=== PATIENT | female | born 1970 | race Hispanic/Latino ===

== ENCOUNTER 2017-05-25 09:53 | Inpatient (IN) | payer OTHER ==
[2017-05-25] MEDS ORDERED: Vancomycin 1gm in NS 250ml 1 GM/250 ML BAG IVPB STA (10:23)
[2017-05-25] MEDS ORDERED: Morphine 4 mg/ml ISec IVP STA (10:41)
--- NOTE | 2017-05-25 10:42 | ED PDOC ---
Arrival/HPI - General Historian: Patient - History of Present Illness Time/Duration: Other (2 days) Symptom Course: Worsening Quality: Aching, Throbbing Severity Level: 10 <Shaila Schilling - Last Filed: 05/25/17 13:55> <BetsylindaSunny - Last Filed: 05/28/17 07:57> - General Chief Complaint: Finger,Hand,&Wrist Time Seen by Provider: 05/25/17 10:10 - History of Present Illness Narrative History of Present Illness (Text): 05/25/17 10:38 47-year-old female presents today with a right second finger pain and swelling and decreased flexion since yesterday. Patient states on evening she had her nails done. She states she had a gel filling of the nail. Patient states she woke up the next morning with swelling to the finger and slight pain. Patient states she woke up today with severe swelling and pain. Patient rates the pain as a 10 out of 10. She states she is unable to flex the finger. Patient states she has pain with extension of the finger. She is complaining of intermittent paresthesias. Patient states she recently completed 3 different antibiotics for ear infection. Patient denies fevers or chills. No chest pain or shortness of breath. She denies any recent trauma or injury. Patient states she went back to the nail salon today and had the gel removed from the fingernail. No other complaints (Shaila Schilling) Past Medical History - Provider Review Nursing Documentation Reviewed: Yes - Travel History Have you recently traveled outside [place] w/in the past 3 mons?: No - Infectious Disease Hx of Infectious Diseases: None - Tetanus Immunization Tetanus Immunization: Unknown - Cardiac Hx Hypertension: No (not since gastric sleeve 3 yrs ago) - Pulmonary Hx Asthma: Yes - Neurological Hx Neurological Disorder: No - HEENT Hx HEENT Disorder: Yes (eyeglasses) Other/Comment: STREP THROAT - Renal Hx Renal Disorder: No - Endocrine/Metabolic Hx Endocrine Disorders: No - Hematological/Oncological Other/Comment: slim barre sx age 26 - Integumentary Hx Dermatological Disorder: No - Musculoskeletal/Rheumatological Hx Falls: No - Gastrointestinal Other/Comment: gastric sleeve 3 yrs ago lost 240 lbs on purpose - Genitourinary/Gynecological Other/Comment: HYSTERECTOMY, polycystic ovary syndrome, no cysts since hyst - Psychiatric Hx Depression: No Hx Emotional Abuse: No Hx Physical Abuse: No Hx Substance Use: No - Surgical History Hx Appendectomy: Yes Hx Cardiac Catheterization: Yes (DIAGNOSTIC) Hx Hysterectomy: Yes Other/Comment: gastric sleeve c section - Anesthesia Hx Anesthesia: Yes Hx Anesthesia Reactions: No Hx Malignant Hyperthermia: No - Suicidal Assessment Feels Threatened In Home Enviroment: No <Shaila Schilling - Last Filed: 05/25/17 13:55> Family/Social History - Physician Review Nursing Documentation Reviewed: Yes Family/Social History: Unknown Family HX Smoking Status: Never Smoked Hx Alcohol Use: Yes (socially in the past) Hx Substance Use: No Hx Substance Use Treatment: No <Shaila Schilling - Last Filed: 05/25/17 13:55> Allergies/Home Meds <Shaila Schilling - Last Filed: 05/25/17 13:55> <Sunny Benitez - Last Filed: 05/28/17 07:57> Allergies/Adverse Reactions: Allergies cefaclor [From Ceclor] Allergy (Verified 05/25/17 13:55) RASH ciprofloxacin [From Cipro] Allergy (Verified 05/25/17 13:55) RASH ciprofloxacin HCl [From Cipro] Allergy (Verified 05/25/17 13:55) RASH Iodine and Iodide Containing Produc Adverse Reaction (Verified 05/25/17 13:55) RASH Home Medications: Home Meds Medication Instructions Recorded Confirmed Biotin [Theodore Biotin] 10,000 mcg PO DAILY 05/25/17 05/25/17 Calcium Carbonate [Calcium] 500 mg PO DAILY 05/25/17 05/25/17 Celecoxib [Celebrex] 50 mg PO DAILY 05/25/17 05/25/17 Cyanocobalamin (Vitamin B-12) 1,000 mcg PO DAILY 05/25/17 05/25/17 [Vitamin B-12] Review of Systems - Review of Systems Constitutional: absent: Fatigue, Fevers Respiratory: absent: SOB, Cough Cardiovascular: absent: Chest Pain, Palpitations Gastrointestinal: absent: Abdominal Pain, Nausea, Vomiting Musculoskeletal: Arthralgias Skin: Cellulitis Neurological: absent: Headache, Dizziness <Shaila Schilling - Last Filed: 05/25/17 13:55> Physical Exam Vital Signs Reviewed: Yes Temperature: Afebrile Blood Pressure: Normal Pulse: Regular Respiratory Rate: Normal Appearance: Positive for: Well-Appearing, Non-Toxic, Comfortable Pain Distress: None Mental Status: Positive for: Alert and Oriented X 3 - Systems Exam Head: Present: Atraumatic Mouth: Present: Moist Mucous Membranes Neck: Present: Normal Range of Motion Respiratory/Chest: Present: Clear to Auscultation Cardiovascular: Present: Regular Rate and Rhythm Upper Extremity: Present: NORMAL PULSES, Tenderness (right 2nd finger; finger is held in slight flexion, unable to flex finger, + edema throughout. + erythema throughout the finger. + tenderness along the volar aspect of the finger. sensation intact. cap refill <2. limited extension of finger. cap refill <2. ), Swelling, Erythema, Neurovascularly Intact, Capillary Refill < 2s. No: Normal ROM, Deformity Neurological: Present: GCS=15 Skin: Present: Warm, Dry Psychiatric: Present: Alert, Oriented x 3 <Shaila Schilling - Last Filed: 05/25/17 13:55> Medical Decision Making <Shaila Schilling - Last Filed: 05/25/17 13:55> <Sunny Benitez - Last Filed: 05/28/17 07:57> ED Course and Treatment: 05/25/17 10:44 47yr old female with right 2nd finger pain/swelling/limited rom. concern for flexor tenosynovitis. cbc: wbc; 10.8 cmp: wnl blood cultures pending esr: crp: xray right 2nd finger: IMPRESSION: There is a small 2 x 4 mm density in the soft tissues ventral to the 2nd PIP joint. This could represent a foreign body. Clinical correlation is suggested. discussed xray findings with patient and family; again denies trauma or injury or possibility of FB. Vancomycin started IV. 05/25/17 11:[address] Dilip Elizondo; he will see patient tomorrow in hospital; Advised vancomycin IV. Pt of dr. partida to be admitted to hospitalist service; case discussed with dr. Nassar; accepts admission to med/surg pt seen and evaluated by dr. benitez. impression; flexor tenosynovitis, FB finger admit to med/surg. with Hand consult dr. Elizondo. ([place],Shaila T) - Lab Interpretations Microbiology Results: Microbiology Results 05/25/17 10:35 Blood Blood Culture - Preliminary NO GROWTH AFTER 48 HOURS Lab Results: 05/25/17 10:35 05/25/17 10:35 Lab Results 05/25/17 10:35: Blood Type A POSITIVE, Antibody Screen Negative, BBK History Checked No verified bt 05/25/17 10:35: C-React Prot High Sens > 15.00 H 05/25/17 10:35: PT 10.4, INR 0.96, APTT 34.5 H 05/25/17 10:35: WBC 10.8 D, RBC 4.83, Hgb 13.5, Hct 40.2, MCV 83.2, MCH 28.0, MCHC 33.6, RDW 13.0, Plt Count 294, MPV 10.0, Gran % 67.6, Lymph % (Auto) 24.0, Carver % (Auto) 6.2 H, Eos % (Auto) 1.7, Baso % (Auto) 0.5, Gran # 7.27 H, Lymph # 2.6, Carver # 0.7 H, Eos # 0.2, Baso # 0.05, ESR 48 H 05/25/17 10:35: Sodium 140, Potassium 4.3, Chloride 103, Carbon Dioxide 27, Anion Gap 14, BUN 18, Creatinine 0.6, Est GFR ( Amer) > 60, Est GFR (Non- Af Amer) > 60, Random Glucose 98, Calcium 9.6, Total Bilirubin 0.8, AST 25, ALT 29, Alkaline Phosphatase 90, Total Protein 8.4 H, Albumin 4.2, Globulin 4.2, Albumin/Globulin Ratio 1.0 L - RAD Interpretation Radiology Orders: 05/25/17 10:10 HAND RIGHT 2ND DIGIT (FINGER) [RAD] Stat - Medication Orders Current Medication Orders: Discontinued Medications Acetaminophen (Tylenol 325mg Tab) 650 mg PO Q6H PRN PRN Reason: Pain, Mild (1-3) Last Admin: 05/27/17 01:35 Dose: 650 mg Re-Assess: [facility] Pain/Vitals Document 05/27/17 02:35 LG (Rec: 05/27/17 05:06 [id number]) Pain Reassessment Is This A Pain ReAssessment? Yes Sleep Is patient sleeping during reassessment? Yes Calcium Carbonate (Oscal) 500 mg PO DAILY [facility] Last Admin: 05/27/17 09:16 Dose: 500 mg Cyanocobalamin (Vitamin B12 1000 Mcg Tab) 1,000 mcg PO DAILY [facility] Last Admin: 05/27/17 09:16 Dose: 1,000 mcg Fluconazole (Diflucan) 150 mg PO ONCE ONE PRN Reason: Protocol Stop: 05/26/17 14:28 Last Admin: 05/26/17 14:49 Dose: 150 mg Guaifenesin (Robitussin) 100 mg PO Q4H PRN PRN Reason: Cough Home Med (Home Med) 1 unit PO DAILY [facility] Last Admin: 05/27/17 09:16 Dose: Vancomycin HCl (Vancomycin 1gm) 1 gm in 250 mls @ 167 mls/hr IVPB STAT STA PRN Reason: Protocol Stop: 05/25/17 11:52 Last Admin: 05/25/17 11:15 Dose: 167 mls/hr Vancomycin HCl (Vancomycin 1gm) 1 gm in 250 mls @ 167 mls/hr IVPB DAILY G[facility]Y PRN Reason: Protocol Vancomycin HCl (Vancomycin 1gm) 1 gm in 250 mls @ 167 mls/hr IVPB Q12 GABY PRN Reason: Protocol Last Admin: 05/27/17 09:15 Dose: 167 mls/hr Morphine Sulfate (Morphine) 4 mg IVP STAT STA Stop: 05/25/17 10:42 Last Admin: 05/25/17 11:08 Dose: 4 mg Morphine Sulfate (Morphine) 2 mg IVP Q4H PRN PRN Reason: Pain, moderate (4-7) Last Admin: 05/26/17 00:07 Dose: 2 mg Multivitamins (Thera Tab) 1 tab PO DAILY [facility] Last Admin: 05/27/17 09:16 Dose: 1 tab Ondansetron HCl (Zofran Inj) 4 mg IVP Q4H PRN PRN Reason: Nausea/Vomiting Pantoprazole Sodium (Protonix Inj) 40 mg IVP DAILY [facility] Last Admin: 05/27/17 09:16 Dose: 40 mg Pneumococcal Polyvalent Vaccine (Pneumovax 23 Vaccine) 0.5 ml IM .ONCE ONE Stop: 05/25/17 15:30 Sodium Chloride ([place] Nasal [place]) 1 ml NS PRN PRN PRN Reason: Nasal congestion Last Admin: 05/26/17 10:06 Dose: 1 ml - PA / [facility] HAND / Resident Statement MD/DO has examined the patient and agrees with the treatment plan. <Sunny Benitez - Last Filed: 05/28/17 07:57> Disposition/Present on Arrival - Present on Arrival Any Indicators Present on Arrival: No History of DVT/PE: No History of Uncontrolled Diabetes: No Urinary Catheter: No History of Decub. Ulcer: No History Surgical Site Infection Following: None - Disposition Have Diagnosis and Disposition been Completed?: Yes Disposition Time: 10:45 Patient Plan: Admission <Shaila Schilling - Last Filed: 05/25/17 13:55> <Sunny Benitez - Last Filed: 05/28/17 07:57> - Disposition Diagnosis: Flexor tenosynovitis of finger, Foreign body finger Disposition: HOSPITALIZED Condition: FAIR
[2017-05-25 10:56] LABS: BASO # 0.05 K/mm3 (0.0-2.0); BASO % 0.5 % (0.0-3.0); EOS # 0.2 (0.0-0.7); EOS % 1.7 % (1.5-5.0); GRAN # 7.27 (1.4-6.5); GRAN % 67.6 % (50.0-68.0); HEMOGLOBIN 13.5 gm/dL (12.0-16.0); LYMPH # 2.6 (1.2-3.4); MEAN CELL VOLUME 83.2 fL (80.0-105.0); MEAN CORPUSCULAR HGB CONC 33.6 g/dl (31.0-37.0); MONO # 0.7 (0.1-0.6); MONO % 6.2 % (1.0-6.0); PLATELET COUNT 294 10^3/uL (120.0-450.0); RBC 4.83 10^6/uL (3.5-6.1); WHITE BLOOD COUNT 10.8 10^3/ul (4.5-11.0)
[2017-05-25 11:31] LABS: INR 0.96 (0.93-1.08); PARTIAL THROMBOPLASTIN TIME 34.5 Seconds (23.7-30.8); PROTHROMBIN TIME 10.4 Seconds (9.9-11.8)
--- NOTE | 2017-05-25 11:56 | RAD ---
PROCEDURE: Right Hand Radiographs. HISTORY: swollen finger/erythema COMPARISON: None. FINDINGS: BONES: Normal. No fracture. JOINTS: Normal. No osteoarthritic changes. SOFT TISSUES: There is a small 2 x 4 mm density in the soft tissues ventral to the 2nd PIP joint. This could represent a foreign body. Clinical correlation is suggested. OTHER FINDINGS: None. IMPRESSION: There is a small 2 x 4 mm density in the soft tissues ventral to the 2nd PIP joint. This could represent a foreign body. Clinical correlation is suggested.
[2017-05-25 12:04] LABS: ALBUMIN 4.2 g/dL (3.0-4.8); ALT/SGPT 29 U/L (7-56); AST/SGOT 25 U/L (15-39); BLOOD UREA NITROGEN 18 mg/dL (7-21); CALCIUM 9.6 mg/dL (8.4-10.5); GFR AFRICAN-AMERICAN > 60; GFR NON-AFRICAN AMERICAN > 60
[2017-05-25] MEDS ORDERED: Morphine 2 mg/ml ISec IVP PRN (12:57)
--- NOTE | 2017-05-25 13:12 | CP.PCM.HP ---
<Eddie Sun - Last Filed: 05/25/17 13:07> History of Present Illness - History of Present Illness History of Present Illness: 47 y/o F with PMH of PCOS presents to the hospital with 2 day history of right index finger pain and reduced range of motion. Pt states that she got her nails done 3 days ago at her normal salon. The next morning, she noticed increased swelling and decreased ROM in the finger. At this time, she took some tylenol which helped relieve her pain. Today when she woke up, pt states her finger was more swollen and she was not able to bend it. Pt then went back to her nail salon to get her nail removed before coming to the hospital. Pt denies any trauma or recent cuts to the area. She does mention that her cuticles were cut by the salon and she has been going there for the past 3 years with no complaints. Denies CP, SOB, N/V/D, fevers, chills. PMH: PCOS Surgical Hx: Total abdominal hysterectomy, Appendectomy, Abdominal cyst removal FMH: Mother - Breast Cancer, Father - Hodgkin's Lymphoma Social Hx: Denies alcohol, tobacco, or illicit drug use Allergies: Cipro, IV contrast Medications: None Present on Admission - Present on Admission Any Indicators Present on Admission: No Review of Systems - Constitutional Constitutional: absent: Chills, Fatigue, Fever - EENT Eyes: absent: Blurred Vision, Change in Vision - Cardiovascular Cardiovascular: absent: Chest Pain, Irregular Heart Rhythm - Respiratory Respiratory: absent: Cough, Dyspnea - Gastrointestinal Gastrointestinal: absent: Diarrhea, Nausea, Vomiting - Genitourinary Genitourinary: absent: Dysuria, Pyuria - Musculoskeletal Musculoskeletal: Joint Swelling, Stiffness. absent: Atrophy - Integumentary Integumentary: absent: New Lesions, Rash - Neurological Neurological: absent: Numbness, Syncope - Hematologic/Lymphatic Hematologic: absent: Easy Bleeding, Easy Bruising Past Patient History - Infectious Disease Hx of Infectious Diseases: None - Tetanus Immunizations Tetanus Immunization: Unknown - Past Social History Smoking Status: Never Smoked - CARDIAC Hx Hypertension: No (not since gastric sleeve 3 yrs ago) - PULMONARY Hx Asthma: Yes - NEUROLOGICAL Hx Neurological Disorder: No - HEENT Hx HEENT Problems: Yes (eyeglasses) Other/Comment: STREP THROAT - RENAL Hx Chronic Kidney Disease: No - ENDOCRINE/METABOLIC Hx Endocrine Disorders: No - HEMATOLOGICAL/ONCOLOGICAL Other/Comment: slim mcginnisx age 26 - INTEGUMENTARY Hx Dermatological Problems: No - MUSCULOSKELETAL/RHEUMATOLOGICAL Hx Falls: No - GASTROINTESTINAL Other/Comment: gastric sleeve 3 yrs ago lost 240 lbs on purpose - GENITOURINARY/GYNECOLOGICAL Other/Comment: HYSTERECTOMY, polycystic ovary syndrome, no cysts since hyst - PSYCHIATRIC Hx Depression: No Hx Emotional Abuse: No Hx Physical Abuse: No Hx Substance Use: No - SURGICAL HISTORY Hx Appendectomy: Yes Hx Cardiac Catheterization: Yes (DIAGNOSTIC) Hx Hysterectomy: Yes Other/Comment: gastric sleeve c section - ANESTHESIA Hx Anesthesia: Yes Hx Anesthesia Reactions: No Hx Malignant Hyperthermia: No Meds Allergies/Adverse Reactions: Allergies Allergy/AdvReac Type Severity Reaction Status Date / Time cefaclor [From Ceclor] Allergy RASH Verified 05/25/17 13:55 ciprofloxacin [From Cipro] Allergy RASH Verified 05/25/17 13:55 ciprofloxacin HCl Allergy RASH Verified 05/25/17 13:55 [From Cipro] Iodine and Iodide Containing AdvReac RASH Verified 05/25/17 13:55 Produc Physical Exam - Constitutional Appears: Well, No Acute Distress - Head Exam Head Exam: ATRAUMATIC, NORMAL INSPECTION, NORMOCEPHALIC - Eye Exam Eye Exam: EOMI - ENT Exam ENT Exam: Mucous Membranes Moist - Neck Exam Neck exam: Positive for: Normal Inspection. Negative for: Lymphadenopathy - Respiratory Exam Respiratory Exam: Clear to Auscultation Bilateral, NORMAL BREATHING PATTERN. absent: Rales, Rhonchi - Cardiovascular Exam Cardiovascular Exam: RRR, +S1, +S2 - GI/Abdominal Exam GI & Abdominal Exam: Normal Bowel Sounds, Soft. absent: Tenderness - Extremities Exam Extremities exam: Positive for: normal inspection. Negative for: calf tenderness, pedal edema - Expanded Upper Extremities Exam Right Neuro motor exam: absent: finger 2-5 abduction intact (Right index finger decreased active and passive ROM. Tenderness to palpation) - Neurological Exam Neurological exam: Alert, CN II-XII Intact, Oriented x3 - Psychiatric Exam Psychiatric exam: Normal Affect, Normal Mood - Skin Skin Exam: Intact, Normal Color, Warm Results - Vital Signs Recent Vital Signs: Last Vital Signs Temp 98.5 F 05/25/17 09:56 Pulse 81 05/25/17 09:56 Resp 16 05/25/17 09:56 BP 136/76 05/25/17 09:56 Pulse Ox 96 05/25/17 09:56 - Labs Result Diagrams: 05/25/17 10:35 05/25/17 10:35 Assessment & Plan - Assessment and Plan (Free Text) Plan: 47 y/o F with PMH of PCOS with possible flexor tenosynovitis of the right index finger. X-ray demonstrated a 2 x 4 cm density in the soft tissues ventral to the 2nd PIP joint, that could possible represent a foreign body although the patient denies any trauma to the area. Will admit to med/surg for IV antibiotics. Pt will be seen by hand surgery tomorrow. 1. Flexor tenosynovitis - Vancomycin 1 gm daily - Morphine 2 q4h for pain control - Hand surgery consulted, Dr. Elizondo 2. Hx of PCOS - No medications at home - Will monitor glucose levels 3. PPX - Protonix - SCDs - Zofran Seen, reviewed, and discussed with attending ELIZABETH SunY-2 <Evert Nassar - Last Filed: 05/25/17 16:04> Results - Vital Signs Recent Vital Signs: Last Vital Signs Temp 98.5 F 05/25/17 15:05 Pulse 81 05/25/17 15:05 Resp 16 05/25/17 15:05 BP 136/76 05/25/17 15:05 Pulse Ox 96 05/25/17 09:56 - Labs Result Diagrams: 05/25/17 10:35 05/25/17 10:35 Labs: Laboratory Results - last 24 hr 05/25/17 14:00 Blood Type Confirm A POSITIVE Attending/Attestation - Attestation I have personally seen and examined this patient.: Yes I have fully participated in the care of the patient.: Yes I have reviewed all pertinent clinical information: Yes Notes (Text): 05/25/17 16:01 attending note; Patient seen and examined with resident in ER. Patient is a 47-year-old female with the PMH of PCOS, asthma, pneumonia presents to the hospital with 2 day history of right index finger pain and reduced range of motion. Pt states that she got her nails done 3 days ago at her normal salon. x-ray showed small density next to right proximal interphalangeal joint. We will review it hand surgeon. Continue IV vancomycin. morphine for pain control. GI prophylaxis Protonix. we will follow up with hand surgery closely. upon discharge the patient will follow-up with PMD . 05/25/17 16:03
[2017-05-25] MEDS ORDERED: Pneumococcal 23-Valent Vaccine IM ONE (15:29)
[2017-05-25 15:30] VITALS: BMI 51.5
[2017-05-25] MEDS: Vancomycin 1gm in NS 250ml 1 GM/250 ML BAG IVPB SCH (22:20)
[2017-05-26 06:44] LABS: HEMOGLOBIN 11.2 gm/dL (12.0-16.0); MEAN CELL VOLUME 84.8 fL (80.0-105.0); MEAN CORPUSCULAR HEMOGLOBIN 27.1 pg (25.0-35.0); MEAN CORPUSCULAR HGB CONC 31.9 g/dl (31.0-37.0); MEAN PLATELET VOLUME 9.9 fl (7.0-11.0); RBC 4.14 10^6/uL (3.5-6.1); RED CELL DISTRIBUTION WIDTH 13.2 % (11.5-14.5); WHITE BLOOD COUNT 8.1 10^3/ul (4.5-11.0)
[2017-05-26 06:52] LABS: ALBUMIN 3.6 g/dL (3.0-4.8); ALT/SGPT 27 U/L (7-56); AST/SGOT 25 U/L (15-39); BLOOD UREA NITROGEN 14 mg/dL (7-21); CALCIUM 8.7 mg/dL (8.4-10.5); GFR AFRICAN-AMERICAN > 60; GFR NON-AFRICAN AMERICAN > 60
[2017-05-26] MEDS ORDERED: guaiFENesin 100 mg/5 ml Syrup UD PO PRN (09:09)
[2017-05-26] MEDS: Vancomycin 1gm in NS 250ml 1 GM/250 ML BAG IVPB SCH ×2 (09:15→23:33)
--- NOTE | 2017-05-26 09:37 | CARD ---
APPROVED REPORT EKG Measurement Heart [id number] <Conclusion> Normal sinus rhythm Normal ECG
[2017-05-26] MEDS ORDERED: CYANOCOBALAMIN 1000 MCG PO SCH (10:00)
[2017-05-26] MEDS ORDERED: BIOTIN 10000 MCG PO SCH (10:00)
[2017-05-26] MEDS ORDERED: Vancomycin 1gm in NS 250ml 1 GM/250 ML BAG IVPB SCH (10:00)
[2017-05-26] MEDS ORDERED: Non Formulary Medication (Multivitamin [Multivitamins] 1 TAB) PO SCH (10:00)
[2017-05-26] MEDS: Multivitamin Therapeutic Tab PO SCH (10:04)
[2017-05-26] MEDS: Biotin [Mega Biotin] 10,000 MCG PO SCH (11:26)
[2017-05-27 07:55] LABS: BASO # 0.03 K/mm3 (0.0-2.0); BASO % 0.4 % (0.0-3.0); EOS # 0.2 (0.0-0.7); EOS % 3.2 % (1.5-5.0); GRAN # 5.29 (1.4-6.5); GRAN % 70.2 % (50.0-68.0); HEMOGLOBIN 11.3 gm/dL (12.0-16.0); LYMPH # 1.5 (1.2-3.4); LYMPH % 19.3 % (22.0-35.0); MEAN CELL VOLUME 84.8 fL (80.0-105.0); MEAN CORPUSCULAR HEMOGLOBIN 26.8 pg (25.0-35.0); MEAN CORPUSCULAR HGB CONC 31.7 g/dl (31.0-37.0); MEAN PLATELET VOLUME 9.9 fl (7.0-11.0); MONO # 0.5 (0.1-0.6); MONO % 6.9 % (1.0-6.0); PLATELET COUNT 252 10^3/uL (120.0-450.0); RBC 4.21 10^6/uL (3.5-6.1); RED CELL DISTRIBUTION WIDTH 13.4 % (11.5-14.5); WHITE BLOOD COUNT 7.5 10^3/ul (4.5-11.0)
[2017-05-27 08:06] LABS: ALB/GLOB RATIO 1.1 (1.1-1.8); ALBUMIN 3.6 g/dL (3.0-4.8); ALT/SGPT 18 U/L (7-56); AST/SGOT 23 U/L (15-39); BLOOD UREA NITROGEN 10 mg/dL (7-21); CALCIUM 8.9 mg/dL (8.4-10.5); GFR AFRICAN-AMERICAN > 60; GFR NON-AFRICAN AMERICAN > 60
[2017-05-27 08:59] VITALS: BP 144/83; PULSE 81; RESP 17; TEMP 98; O2SAT 100
[2017-05-27] MEDS: Vancomycin 1gm in NS 250ml 1 GM/250 ML BAG IVPB SCH (09:15)
[2017-05-27] MEDS: Multivitamin Therapeutic Tab PO SCH (09:16)
[2017-05-27] MEDS: Biotin [Mega Biotin] 10,000 MCG PO SCH (09:16)
--- NOTE | 2017-05-27 10:22 | PN ---
SUBJECTIVE: The patient is a 47-year-old white female admitted to the hospital after having a right index finger infection from a pedicure. The patient developed tenosynovitis of the right hand, wrist and right second finger. The patient was seen in consultation by the hand surgery and also by internal medicine. The patient was placed on IV antibiotics with good resolution decreased swelling, decreased erythema, and increased movement of the finger. The patient does not need surgery. The patient will be discharge home in good condition today on p.o. antibiotics. ALLERGIES: THE PATIENT IS ALLERGIC TO CIPRO AND CEPHALEXIN. She will be discharged home on doxycycline and she follows as an outpatient. Physical examination is unchanged. The finger is not movable. There is some light tenderness and some slight erythema of the dorsum of the right hand; however, there is no swelling and no warmth to the hand and there is no blistering or peeling at this point. IMPRESSION: Tenosynovitis with infected right index finger. Francesco Palafox MD
--- NOTE | 2017-05-27 20:16 | DS ---
The patient is a 47-year-old white female admitted to the hospital with tenosynovitis and infected right index finger. The patient was seen in consultation by Dr. Alfrde for hand surgery. The patient also had IV antibiotics and local wound care to the right finger. The patient resolved slowly over the next several days with decreased white count, decreased cellulitis, and decreased swelling and inflammation. The patient was able to move the finger was needed at this point. The patient will be discharged home in improved condition and will continue on p.o. antibiotic. Francesco Palafox MD
== END 2017-05-27 16:20 | disposition home or self-care (01) | DRG 558 ==
LOC: ED 09:53 → ERH 11:50 → 3RSO 13:03
PROVIDERS: ADMIT Internal Medicine; ATTEND Internal Medicine
DX: M65.9 Synovitis and tenosynovitis, unspecified (principal); E28.2 Polycystic ovarian syndrome; M79.5 Residual foreign body in soft tissue; H66.90 Otitis media, unspecified, unspecified ear; J45.909 Unspecified asthma, uncomplicated; Z80.3 Family history of malignant neoplasm of breast; Z80.7 Family history of other malignant neoplasms of lymphoid, hematopoietic and related tissues; Z90.49 Acquired absence of other specified parts of digestive tract; Z90.710 Acquired absence of both cervix and uterus; Z88.1 Allergy status to other antibiotic agents

== ENCOUNTER 2018-10-22 14:23 | Outpatient (CLI) | payer OTHER | END 2018-10-22 14:24 | disposition home or self-care (01) | LOC: RAD 14:24 ==

== ENCOUNTER 2019-01-09 16:29 | Observation (INO) | payer OTHER ==
[2019-01-09 17:21] LABS: BASO # 0.01 K/mm3 (0.0-2.0); BASO % 0.1 % (0.0-3.0); HEMOGLOBIN 12.7 g/dL (12.0-16.0); LYMPH # 0.9 (1.2-3.4); LYMPH % 7.6 % (22.0-35.0); MEAN CELL VOLUME 84.7 fl (80.0-105.0); MEAN CORPUSCULAR HEMOGLOBIN 26.7 pg (25.0-35.0); MEAN CORPUSCULAR HGB CONC 31.5 g/dl (31.0-37.0); MEAN PLATELET VOLUME 10.2 fl (7.0-11.0); MONO % 0.3 % (1.0-6.0); PLATELET COUNT 327 10^3/uL (120.0-450.0); RBC 4.76 10^6/uL (3.5-6.1); RED CELL DISTRIBUTION WIDTH 13.4 % (11.5-14.5); WHITE BLOOD COUNT 11.6 10^3/uL (4.5-11.0)
[2019-01-09 17:32] LABS: ALBUMIN 4.4 g/dL (3.0-4.8); AST/SGOT 29 U/L (14-36); BLOOD UREA NITROGEN 16 mg/dL (7-21); CALCIUM 9.8 mg/dL (8.4-10.5); GFR NON-AFRICAN AMERICAN > 60
[2019-01-09 17:39] LABS: BAND 2 % (0-2); LYMPHOCYTE 11 % (22.0-35.0); MONOCYTE 1 % (1.0-6.0); NEUTROPHIL 86 % (50.0-70.0)
[2019-01-09 17:40] LABS: PLATELET ESTIMATE NORMAL (NORMAL)
[2019-01-09 17:44] LABS: ALT/SGPT < 6 U/L (7-56)
[2019-01-09 17:47] LABS: TROPONIN I < 0.01 ng/mL
--- NOTE | 2019-01-09 18:09 | ED PDOC ---
Arrival/HPI - General Chief Complaint: Chest Pain Historian: Patient - History of Present Illness Narrative History of Present Illness (Text): 01/09/19 16:38 A 48 year old female, whose past medical history includes migraines, hyperlipidemia, PCOS, and gastric sleeve, presents to the emergency department complaining of chest pain since 1 hour prior to arrival. Patient reports she had a solumedrol shot this morning for migraine however her headache persisted. and patient states she developed left sided chest pain radiating to left should and left neck. Patient admits to shortness of breath secondary to pain and nausea. Patient describes pain as constant and sharp. Patient denies any diaphoresis, blurry vision, fever, chills, lower extremity edema, or any other complaints. No PMD Time/Duration: 1-3 hours Symptom Onset: Gradual Symptom Course: Unchanged Activities at Onset: Light Context: Home Past Medical History - Provider Review Nursing Documentation Reviewed: Yes - Infectious Disease Hx of Infectious Diseases: None - Tetanus Immunization Tetanus Immunization: Unknown - Cardiac Hx Cardiac Disorders: Yes Hx Hypertension: No (not since gastric sleeve 3 yrs ago) - Pulmonary Hx Respiratory Disorders: Yes Hx Asthma: Yes Hx Pneumonia: Yes - Neurological Hx Neurological Disorder: Yes (NEUROPATHY) - HEENT Hx HEENT Disorder: Yes (eyeglasses) Other/Comment: STREP THROAT - Renal Hx Renal Disorder: No - Endocrine/Metabolic Hx Endocrine Disorders: No - Hematological/Oncological Hx Blood Disorders: Yes Other/Comment: slim barre sx age 26 - Integumentary Hx Dermatological Disorder: Yes Other/Comment: 8--17 PAIN AND SWELLING TO R INDEX FINGER-FLEXOR TENSYNOVITIS - Musculoskeletal/Rheumatological Hx Falls: No - Gastrointestinal Hx Gastrointestinal Disorders: Yes Other/Comment: gastric sleeve 3 yrs ago lost 240 lbs on purpose - Genitourinary/Gynecological Hx Genitourinary Disorders: Yes (C SECTION X 1) Other/Comment: HYSTERECTOMY, polycystic ovary syndrome, no cysts since hyst - Psychiatric Hx Depression: No Hx Emotional Abuse: No Hx Physical Abuse: No Hx Substance Use: No - Surgical History Hx Appendectomy: Yes Hx Cardiac Catheterization: Yes (DIAGNOSTIC) Hx Hysterectomy: Yes Other/Comment: gastric sleeve c section - Anesthesia Hx Anesthesia: Yes Hx Anesthesia Reactions: No Hx Malignant Hyperthermia: No - Suicidal Assessment Feels Threatened In Home Enviroment: No Family/Social History - Physician Review Nursing Documentation Reviewed: Yes Family/Social History: No Known Family HX Smoking Status: Never Smoked Hx Alcohol Use: No Hx Substance Use: No Hx Substance Use Treatment: No Allergies/Home Meds Allergies/Adverse Reactions: Allergies cefaclor [From Ceclor] Allergy (Verified 05/25/17 13:55) RASH ciprofloxacin [From Cipro] Allergy (Verified 05/25/17 13:55) RASH ciprofloxacin HCl [From Cipro] Allergy (Verified 05/25/17 13:55) RASH Iodine and Iodide Containing Produc Adverse Reaction (Verified 05/25/17 13:55) RASH Home Medications: Home Meds Medication Instructions Recorded Confirmed Biotin [Theodore Biotin] 10,000 mcg PO DAILY 05/25/17 05/25/17 Calcium Carbonate [Calcium] 500 mg PO DAILY 05/25/17 05/25/17 Celecoxib [Celebrex] 50 mg PO DAILY 05/25/17 05/25/17 Cyanocobalamin (Vitamin B-12) 1,000 mcg PO DAILY 05/25/17 05/25/17 [Vitamin B-12] Review of Systems - Physician Review All systems were reviewed & negative as marked: Yes - Review of Systems Constitutional: absent: Fevers, Other (chills) Eyes: absent: Vision Changes (blurry vision) Respiratory: SOB Cardiovascular: Chest Pain Gastrointestinal: Nausea Skin: absent: Other (no lower extremity edema) Endocrine: Diaphoresis Physical Exam Vital Signs Reviewed: Yes Vital Signs Temp Pulse Resp BP Pulse Ox 01/09/19 16:35 97.8 F 91 H 18 160/81 H 95 Temperature: Afebrile Blood Pressure: Hypertensive Pulse: Tachycardic Respiratory Rate: Normal Mental Status: Positive for: Alert and Oriented X 3 - Systems Exam Head: Present: Atraumatic, Normocephalic Pupils: Present: PERRL Extroacular Muscles: Present: EOMI Conjunctiva: Present: Normal Respiratory/Chest: Present: Clear to Auscultation, Good Air Exchange. No: Respiratory Distress, Accessory Muscle Use Cardiovascular: Present: Regular Rate and Rhythm, Normal S1, S2. No: Murmurs Abdomen: No: Tenderness, Distention, Peritoneal Signs Back: Present: Normal Inspection Upper Extremity: Present: Normal Inspection. No: Cyanosis, Edema Lower Extremity: Present: Normal Inspection. No: Edema Neurological: Present: GCS=15, CN II-XII Intact, Speech Normal Skin: Present: Warm, Dry, Normal Color. No: Rashes Psychiatric: Present: Alert, Oriented x 3, Normal Insight, Normal Concentration Medical Decision Making ED Course and Treatment: 01/09/19 16:38 Impression: 48 year old female presenting to the emergency room complaining of chest pain. Plan: -- EKG -- Chest X-ray -- Aspirin -- Reglan -- Reassess and disposition Prior Visits: Notes and results from previous visits were reviewed. Progress Notes: 01/09/19 18:[address] Simms, covering Dr. Palafox, who accepts patient for admission. 01/09/19 18:25 EKG: Ordered, reviewed, and independently interpreted the EKG. Rate : 89 BPM Rhythm : NSR Interpretation : Normal intervals. 01/09/19 18:30 Procedure: Chest X-ray Dictator: Juno Lee Impression: No active disease. - Lab Interpretations Lab Results: Troponin I < 0.01 ng/mL 01/09/19 17:10 Total Bilirubin 0.5 mg/dL (0.2-1.3) 01/09/19 17:10 AST 29 U/L (14-36) 01/09/19 17:10 ALT < 6 U/L (7-56) L 01/09/19 17:10 Alkaline Phosphatase 101 U/L (38-126) 01/09/19 17:10 Total Protein 8.9 g/dL (5.8-8.3) H 01/09/19 17:10 Albumin 4.4 g/dL (3.0-4.8) 01/09/19 17:10 Globulin 4.4 gm/dL 01/09/19 17:10 Albumin/Globulin Ratio 1.0 (1.1-1.8) L 01/09/19 17:10 - RAD Interpretation Radiology Orders: 01/09/19 16:39 CHEST PORTABLE [RAD] Stat - Medication Orders Current Medication Orders: Discontinued Medications Aspirin (Aspirin) 325 mg PO STAT STA Stop: 01/09/19 17:38 Last Admin: 01/09/19 18:05 Dose: 325 mg Metoclopramide HCl (Reglan) 10 mg IVP STAT STA Stop: 01/09/19 17:38 Last Admin: 01/09/19 18:05 Dose: 10 mg IVP Administration Document 01/09/19 18:05 BB (Rec: 01/09/19 18:05 BB [id number]) Charges for Administration # of IVP Administrations 1 - Scribe Statement The provider has reviewed the documentation as recorded by the Vinhibsalima Bhakta All medical record entries made by the Scribe were at my direction and personally dictated by me. I have reviewed the chart and agree that the record accurately reflects my personal performance of the history, physical exam, medical decision making, and the department course for this patient. I have also personally directed, reviewed, and agree with the discharge instructions and disposition. Disposition/Present on Arrival - Present on Arrival Any Indicators Present on Arrival: No History of DVT/PE: No History of Uncontrolled Diabetes: No Urinary Catheter: No History of Decub. Ulcer: No History Surgical Site Infection Following: None - Disposition Have Diagnosis and Disposition been Completed?: Yes Diagnosis: Chest pain Disposition: HOSPITALIZED Disposition Time: 18:00 Condition: STABLE
--- NOTE | 2019-01-09 18:25 | RAD ---
Date of service: 01/09/2019 HISTORY: Chest pain. COMPARISON: No prior. FINDINGS: LUNGS: No active pulmonary disease. PLEURA: No significant pleural effusion identified, no pneumothorax apparent. CARDIOVASCULAR: No atherosclerotic calcification present No radiographic findings to suggest acute or significant cardiovascular disease. OSSEOUS STRUCTURES: No significant abnormalities. VISUALIZED UPPER ABDOMEN: Normal. OTHER FINDINGS: None. IMPRESSION: No active disease.
[2019-01-09 21:52] VITALS: BMI 51.6
--- NOTE | 2019-01-09 22:14 | CARD ---
APPROVED REPORT Date of service: 01/09/2019 EKG Measurement Heart [id number] <Conclusion> Normal sinus rhythm Normal ECG
[2019-01-10 00:21] VITALS: O2SAT 94
[2019-01-10 05:36] VITALS: BP 131/56; PULSE 71; RESP 18; TEMP 97.9
--- NOTE | 2019-01-10 10:53 | HP ---
DATE OF EXAM: 01/10/2019 CHIEF COMPLAINT AND HISTORY OF PRESENT ILLNESS: This is a 48-year-old female who is coming into the hospital with complaints of chest pain. She said that she was given migraine medications yesterday by her neurologist. She started having this pain that lasted about an hour. It was mostly in the lower neck area. She says that it improved. She did not have any exertion. She denied any shortness of breath. No nausea, no abdominal pain, no back pain, no dysuria, frequency or nocturia. The pain may have radiated to the left side of the neck. She had a nuclear stress test done about 5 years ago which was negative. She also had a cardiac cath that showed no significant abnormalities by her insole buffer, . She says she felt well this morning. No chest pain or shortness of breath. No nausea or vomiting. All other review of symptoms are within normal limits except as mentioned. PAST MEDICAL HISTORY: Migraine headaches, dyslipidemia, polycystic ovarian syndrome, and Jeanne-Rondon. PAST SURGICAL HISTORY: Gastric sleeve 3 years ago, hysterectomy, and x1. SOCIAL HISTORY: She does not smoke, drink or use drugs. FAMILY HISTORY: No cardiac disease in her family. ALLERGIES: CEFACLOR, CIPROFLOXACIN, IODINE. PHYSICAL EXAMINATION: VITAL SIGNS: Temperature of 97.9, pulse of 71, blood pressure 131/56, respirations 18, height is 5 feet 4 inches, weight is 301 pounds, and BMI is 51.7. GENERAL: The patient is lying in bed, comfortable, and in no acute distress. HEENT: Atraumatic and normocephalic. Anicteric sclerae. Moist mucosa. Tonica conjunctivae. No oral lesions. NECK: No JVD, anterior and posterior adenopathy, thyromegaly, or bruits. CARDIOVASCULAR: S1 and S2 regular. No murmurs, rubs or gallops. LUNGS: Clear to auscultation bilaterally. No wheezes, rales, or rhonchi. ABDOMEN: Bowel sounds are positive. Soft, nontender and nondistended. No hepatosplenomegaly. No rebound and no guarding EXTREMITIES: No cyanosis, clubbing, or edema. NEUROLOGIC: No facial asymmetry. Tongue is midline. No uvula deviation. Power is 5/5 upper extremities and lower extremities. Sensation intact in upper extremities and lower extremities. PSYCHIATRIC: She is awake, alert and oriented x3. No anxiety or depression. She has normal affect. GENITOURINARY: No CVA tenderness. VASCULAR: 2+ pulses in the carotid pulses and pedal pulses. SKIN: No erythema or nodules SPINE: Shows normal curvature. LABORATORY DATA: White count of 11.6, hemoglobin is 12.7. Chemistry shows a troponin that is 0.01 x2 is negative. Chest x-ray done shows no active disease. EKG shows sinus rhythm with a rate of 89, QTC is 469. ASSESSMENT : 1. Chest pain. 2. Obesity with a BMI 51. 3. Migraine headaches. 4. Polycystic ovarian syndrome. PLAN: The patient is currently comfortable. She was seen by Dr. Dominguez and I did speak to him. He has cleared her from Cardiology. The patient was given aspirin and Reglan. She had troponin that was negative. The patient will follow with her own insole buffer and Dr. Wilson her primary care doctor. She is discharged home. Condition is stable. The patient to return if her symptoms worsen or recur. De Simms MD
--- NOTE | 2019-01-10 12:01 | CON ---
DATE OF CONSULTATION 01/10/2019 REQUESTING PHYSICIAN: Dr. Simms. REASON FOR CONSULTATION: Chest pain. HISTORY OF PRESENT ILLNESS: This is a 48-year-old woman with a strong family history of coronary artery disease as well as hyperlipidemia, admitted with chest discomfort. She has a regular substance abuse clinician, Dr. Corado, in [place], with whom she has followed in the past. She has undergone a stress test prior to knee replacement surgery and also had a catheterization performed approximately 5 years ago, which was reportedly normal. She has been bothered lately by worsening migraine symptoms. She was seen by neurologist yesterday, who gave an injection of Solu-Medrol, and shortly thereafter she felt some throat and upper chest discomfort as well as left shoulder pain. She became concerned and presents to the emergency room. Electrocardiogram was unremarkable and cardiac enzymes are negative. Cardiac evaluation was requested. PAST MEDICAL HISTORY: Her past history is notable for a gastric sleeve surgery 6 years ago, after which she lost substantial weight, however, remains overweight. She has recently joined [employer]. She has hyperlipidemia. She has undergone bilateral knee replacements in the past. She has also had polycystic ovary disease and underwent hysterectomy in the past. She had one section in the past. 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 MEDICATIONS: Medications at home include vitamins and Celebrex. ALLERGIES: SHE HAS REPORTED A REACTION TO CONTRAST AGENTS, CIPROFLOXACIN, AND CECLOR. SOCIAL HISTORY: She does not smoke or drink. She is and lives with her . She works in the [employer]. She has one daughter. FAMILY HISTORY: Father and brother both in their 40s from myocardial infarctions as did one uncle. Mother is in good health. REVIEW OF SYSTEMS: Ten-point review of systems is otherwise unremarkable. She does not exercise regularly. PHYSICAL EXAMINATION: GENERAL: She is an obese middle-aged woman. VITAL SIGNS: Her blood pressure is 130/56 with a pulse of 70 and sinus, respirations are 16. She is afebrile. HEENT: Normocephalic, atraumatic. NECK: Supple. No JVD noted. CHEST: Clear to auscultation and percussion. HEART: PMI in normal position. Heart sounds are somewhat distant. No pathological murmurs or gallops noted. ABDOMEN: Soft, obese, nontender with normoactive bowel sounds. EXTREMITIES: No clubbing, cyanosis, or edema. SKIN: Warm and dry. PSYCHIATRIC: Normal mood and affect. NEUROLOGIC: Alert and oriented x3. No gross motor or sensory deficits notable. DIAGNOSTIC DATA: White count 11.6, hemoglobin and hematocrit are 12.7 and 40.3 with a platelet count of 327,000. Potassium 4, BUN and creatinine are 16 and 0.5, glucose 240. Two sets of cardiac enzymes are negative. Electrocardiogram reveals sinus rhythm with no significant abnormalities. Chest x-ray reveals normal cardiac silhouette with clear lung wiseman. IMPRESSION: 1. Chest pain appears atypical, doubt any cardiac cause, especially in light of her catheterization several years ago revealing no significant coronary artery disease. In addition, her pain is fairly atypical. 2. Multiple cardiac risk factors given the strong family history, history of hyperlipidemia, and possible diabetes. 3. Elevated glucose, no clear known history of prior diabetes. 4. Morbid obesity. 5. Rest of problems as noted. RECOMMENDATIONS: From cardiac standpoint, she is stable for discharge home at this time. Outpatient followup with her substance abuse clinician can be planned. Continued aggressive weight loss measures were advised. Followup of her hyperglycemia should be planned as well. The need for aggressive risk factor control given her young age was discussed with her at length. Thank you for this consultation. If I can be of help in the future, please let me know. David Dominguez MD
== END 2019-01-10 14:14 | disposition home or self-care (01) ==
LOC: ED 16:29 → ERH 18:27 → 2RNO 21:23
PROVIDERS: ADMIT Internal Medicine Nephrology; ATTEND Internal Medicine Nephrology
DX: R07.9 Chest pain, unspecified (principal); E28.2 Polycystic ovarian syndrome; E66.01 Morbid (severe) obesity due to excess calories; E78.5 Hyperlipidemia, unspecified; G43.909 Migraine, unspecified, not intractable, without status migrainosus; J45.909 Unspecified asthma, uncomplicated; Z68.43 Body mass index [BMI] 50.0-59.9, adult; Z82.49 Family history of ischemic heart disease and other diseases of the circulatory system; Z87.01 Personal history of pneumonia (recurrent); Z90.49 Acquired absence of other specified parts of digestive tract; Z90.710 Acquired absence of both cervix and uterus; Z96.653 Presence of artificial knee joint, bilateral
CPT/HCPCS: 36415; 71045; 80053; 82550; 83615; 83735; 84484; 85025; 93005; 96374; 99285; G0378; J2765

== ENCOUNTER 2019-02-03 14:36 | Outpatient (CLI) | payer OTHER | END 2019-02-03 14:37 | disposition home or self-care (01) | LOC: LAB 14:36 ==

== ENCOUNTER 2019-02-19 14:28 | Outpatient (CLI) | payer OTHER | END 2019-02-19 14:29 | disposition home or self-care (01) | LOC: LAB 14:28 ==